=== PATIENT | female | born 1940 | race Hispanic/Latino ===

== ENCOUNTER 2019-09-22 18:14 | Observation (INO) | payer OTHER ==
[~2019-09-22] VITALS: Ht 152.4 cm; Wt 66.8 kg
[2019-09-22] MEDS ORDERED: L.E.T. GEL 4%/0.5%/0.18% 3ML 3 ML/SYR SYG TP ONE (18:56)
[2019-09-22] MEDS ORDERED: TETANUS/DIPHTHERIA TOXOID [ADULT] 0.5 ML VIAL IM ONE (19:20)
[2019-09-22 19:24] LABS: BASOPHILS % (AUTO) 0.4 % (0.0-5.0); EOSINOPHILS % (AUTO) 0.7 % (0.0-8.0); HEMATOCRIT 37.4 % (36-48); LYMPHOCYTES % (AUTO) 22.3 % (21.0-51.0); MEAN CORPUSCULAR HEMOGLOBIN 30.9 pg (27.0-33.0); MEAN CORPUSCULAR HGB CONC 33.7 g/dL (32.0-36.0); MEAN CORPUSCULAR VOLUME 91.7 fL (79-99); NEUTROPHILS % (AUTO) 69.2 % (40.0-77.0); PLATELET COUNT (AUTO) 327 K/uL (130-400); RED BLOOD CELL COUNT(AUTO) 4.08 MIL/uL (4.00-5.50); RED CELL DISTRIBUTION WIDTH 12.9 % (11.0-15.5); WHITE BLOOD COUNT (AUTO) 7.3 K/uL (4.8-10.8)
[2019-09-22] MEDS ORDERED: LIDOCAINE HCL 1% 20 ML VIAL ONE (19:38)
[2019-09-22 19:39] LABS: POTASSIUM 3.9 mmol/L (3.5-5.1)
[2019-09-22 19:43] LABS: INR 0.99 (0.85-1.15); PARTIAL THROMBOPLASTIN TIME 25.5 SEC (26.3-35.5); PROTHROMBIN TIME 10.7 SEC (9.6-11.6)
[2019-09-22 19:44] LABS: ALBUMIN 4.4 g/dL (3.5-5.0); BILIRUBIN,TOTAL 0.4 mg/dL (0.2-1.0)
[2019-09-22] MEDS: SODIUM CHLORIDE 0.9% 1000ML 1,000 ML IV SCH (19:55)
[2019-09-22] MEDS ORDERED: LACTULOSE 20 GM/30 ML UDCUP PO PRN (20:00)
[2019-09-22] MEDS: CEFAZOLIN SODIUM 1 GM VIAL IVP SCH (20:00)
[2019-09-22] MEDS ORDERED: HYDRALAZINE HCL 20 MG/ML VIAL IV PRN (20:00)
[2019-09-22] MEDS ORDERED: ACETAMINOPHEN 325 MG TAB PO PRN ×2 (20:00)
[2019-09-22] MEDS ORDERED: ONDANSETRON HCL 4 MG/2 ML VIAL IV PRN (20:00)
[2019-09-22] MEDS ORDERED: FAMOTIDINE/PF 20 MG/2 ML VIAL IV ONE (20:37)
[2019-09-22] MEDS ORDERED: CEFAZOLIN SODIUM 1 GM VIAL ONE (20:37)
[2019-09-22] MEDS ORDERED: SODIUM CHLORIDE 0.9% 1000ML 1,000 ML IV ONE (20:38)
[2019-09-22] MEDS ORDERED: SODIUM CHLORIDE 0.9% 100 ML IV ONE (20:39)
[2019-09-22 21:40] VITALS: BP 168/72
[2019-09-23] VITALS: BP 132/60
[2019-09-23 04:00] VITALS: BP 128/62
[2019-09-23 08:32] VITALS: BP 127/59
[2019-09-23] MEDS: SODIUM CHLORIDE 0.9% 1000ML 1,000 ML IV SCH ×2 (09:30→18:00)
[2019-09-23] MEDS: FAMOTIDINE/PF 20 MG/2 ML VIAL IV SCH (09:31)
[2019-09-23] MEDS: CEFAZOLIN SODIUM 1 GM VIAL IVP SCH ×2 (09:31→18:00)
[2019-09-23 11:59] VITALS: BP 142/65
--- NOTE | 2019-09-23 16:12 | NUR ---
cm note met with patient and states resides at home with daughter Irish, no provider services, no hh, pt is independent with adls/ambulation, no dme. feels safe to return back home. Addendum: 09/23/19 at 1618 by CLAIR GODWIN CM Amended: Links added.
[2019-09-23 17:51] VITALS: BP 124/61
[2019-09-23 19:00] VITALS: BP 144/57
--- NOTE | 2019-09-23 20:00 | NUR ---
ASSESS SHIFT ASSESSMENT DONE, PLEASE REFER TO CHART. INSTRUCTED TO BE NPO POST MN, VERBALIZES UNDERSTANDING. KEPT RESTED AND COMFORTABLE. CALL LIGHT WITHIN REACH. WILL MONITOR PT. Addendum: 09/23/19 at 2315 by TARYN FOLEY RN RN Amended: Links added.
--- NOTE | 2019-09-23 22:00 | NUR ---
ROUNDS PT RESTING IN BED, NO DISTRESS NOTED. NO CONCERNS VERBALIZED. ENCOURAGED TO REST AND SLEEP. WILL MONITOR PT.
[2019-09-24] VITALS (14 sets, daily range): BP systolic 118–150; BP diastolic 48–98
[2019-09-24] MEDS: CEFAZOLIN SODIUM 1 GM VIAL IVP SCH ×2 (00:04→08:00)
--- NOTE | 2019-09-24 02:00 | NUR ---
ROUNDS PT FAIRLY ASLEEP WITH RESPIRATIONS EVEN AND UNLABORED. NO DISTRESS NOTED. KEPT UNDISTURBED FOR NOW. KEPT NPO. WILL MONITOR PT.
[2019-09-24] MEDS: SODIUM CHLORIDE 0.9% 1000ML 1,000 ML IV SCH (05:50)
--- NOTE | 2019-09-24 06:53 | NUR ---
ENDORSE PT RESTING WELL. KEPT NPO FOR SX. ENDORSING TO AM SHIFT FOR MORE CARE AND MANAGEMENT.
--- NOTE | 2019-09-24 07:20 | NUR ---
OR PT TAKEN TO SX BY OR STAFF.
--- NOTE | 2019-09-24 07:25 | NUR ---
NOTE AAOX3. DENIES PAIN AT THIS TIME. NO DISTRESS OR SOB. GOT UP TO BATHROOM AND SHE IMMEDIATELY WAS TAKEN TO SURGERY. DRESSING TO HEAD D/I. NO BLEEDING NOTED. SHE SUFFERED A COMPLEX LACERATION WHEN SHE ACCIDENTALLY FELL AT HOME. DR RIOS TO DO SURGERY.
[2019-09-24] MEDS ORDERED: LACTATED RINGERS 1000ML 1,000 ML IV ONE (07:54)
[2019-09-24] MEDS ORDERED: LIDOCAINE HCL 2% 20ML ONE (08:09)
[2019-09-24] MEDS ORDERED: MIDAZOLAM HCL 1 MG/ML 2ML VIAL ONE (08:12)
[2019-09-24] MEDS ORDERED: PROPOFOL 10 MG/ML 20ML VIAL IV ONE (08:12)
[2019-09-24] MEDS ORDERED: LIDOCAINE PF 2% 5ML ABBOJECT ONE (08:12)
[2019-09-24] MEDS: FAMOTIDINE/PF 20 MG/2 ML VIAL IV SCH (09:00)
--- NOTE | 2019-09-24 09:25 | NUR ---
NOTE CAME BACK FROM SURGERY AT THIS TIME. STABLE UPON ARRIVAL. SHE DID NOT HAVE ANY PROCEDURES DONE. SHE INITIALLY CAME IN FOR LACERATION TO FOREHEAD. SHE WAS SEEN IN E.R. AND RECEIVED A FEW SUTURES BUT ONCE DR RIOS SAW THE WORK DONE IN E.R., ACCORDING TO REPORT FROM PACU NURSE, HE CLEANED THE INCISION AND APPLIED WHAT SEEMS TO BE DERMABOND. SHE WAS CLEARED FOR DISCHARGE FROM DR RIOS'S STANDPOINT. WILL NOTIFY PRIMARY TEAM IF SHE CAN BE DISCHARGED.
[2019-09-24] MEDS ORDERED: CEPH250T PO (12:42)
--- NOTE | 2019-09-24 17:30 | NUR ---
note DISCHARGE INSTRUCTIONS GIVEN AT THIS TIME. REFER TO CHART FOR DETAILS. STABLE UPON LEAVING.
== END 2019-09-24 18:05 | disposition home or self-care (01) ==
LOC: EDH 18:14 → EDBD 18:14 → EDHIP 19:20 → 3BH 21:40
PROVIDERS: ADMIT Surgery Plastic and Reconstructive Surgery; ATTEND Surgery Plastic and Reconstructive Surgery
DX: S01.81XA Laceration without foreign body of other part of head, initial encounter (principal); F17.210 Nicotine dependence, cigarettes, uncomplicated; Z90.49 Acquired absence of other specified parts of digestive tract; W01.0XXA Fall on same level from slipping, tripping and stumbling without subsequent striking against object, initial encounter; Y93.89 Activity, other specified; Y92.89 Other specified places as the place of occurrence of the external cause
CPT/HCPCS: 12015; 36415 ×2; 70450; 70486; 72125; 80053; 83880; 84484; 85025; 85610; 85730; 87040 ×2; 90714; 93005; 96374; 96375; 96376 ×2; 99285; A4215; A4221; A4222; A4223; A4663; A4930; G0168; G0378 ×46; J0690 ×5; J2001; J2250; J2704; J3490 ×4; J7030 ×3; J7120

== ENCOUNTER 2021-11-12 14:45 | Observation (INO) | payer OTHER ==
[~2021-11-12] VITALS: Ht 152.4 cm; Wt 70.5 kg
[~2021-11-12 14:45] MED LIST: CEPH250T PO
[2021-11-12] MEDS ORDERED: 0.9%NACL 1000ML 1,000 ML IV ONE (15:00)
[2021-11-12 15:05] LABS: BASOPHILS % (AUTO) 0.3 % (0.0-5.0); EOSINOPHILS % (AUTO) 0.2 % (0.0-8.0); HEMATOCRIT 39.1 % (36-48); LYMPHOCYTES % (AUTO) 8.3 % (21.0-51.0); MEAN CORPUSCULAR HEMOGLOBIN 28.6 pg (27.0-33.0); MEAN CORPUSCULAR HGB CONC 31.2 g/dL (32.0-36.0); MEAN CORPUSCULAR VOLUME 91.8 fL (79-99); NEUTROPHILS % (AUTO) 85.9 % (40.0-77.0); PLATELET COUNT (AUTO) 312 K/uL (130-400); RED BLOOD CELL COUNT(AUTO) 4.26 MIL/uL (4.00-5.50); RED CELL DISTRIBUTION WIDTH 14.2 % (11.0-15.5); WHITE BLOOD COUNT (AUTO) 9.6 K/uL (4.8-10.8)
[2021-11-12 15:18] LABS: CREATININE 1.5 mg/dL (0.5-1.5); INR 0.96 (0.85-1.15); POTASSIUM 3.1 mmol/L (3.5-5.1); PROTHROMBIN TIME 10.5 SEC (9.6-11.6)
[2021-11-12 15:20] LABS: PARTIAL THROMBOPLASTIN TIME 23.7 SEC (26.3-35.5)
[2021-11-12 15:22] LABS: MAGNESIUM 2.1 mg/dL (1.80-2.40)
[2021-11-12 15:25] LABS: ALBUMIN 4.3 g/dL (3.5-5.0); BILIRUBIN,TOTAL 0.5 mg/dL (0.2-1.0); TOTAL PROTEIN, SERUM 7.9 g/dL (6.0-8.3)
[2021-11-12] MEDS ORDERED: KCL 20 MEQ ERTAB PO ONE (15:30)
[2021-11-12 16:07] LABS: APPEARANCE,URINE CLOUDY (CLEAR); BILIRUBIN,URINE SMALL (NEGATIVE); COLOR,URINE YELLOW (YELLOW); GLUCOSE, URINE (UA) NEGATIVE (NEGATIVE); KETONES,URINE NEGATIVE (NEGATIVE); LEUKOCYTE ESTERASE ,URINE MODERATE (NEGATIVE); NITRATE,URINE NEGATIVE (NEGATIVE); OCCULT BLOOD,URINE SMALL (NEGATIVE); PH,URINE 5.5 (5.0-8.0); PROTEIN,URINE 30 mg/dL (NEGATIVE)
[2021-11-12 16:22] LABS: BACTERIA,URINE Moderate /HPF (None Seen)
[2021-11-12 16:23] LABS: MUCUS,URINE Few LPF (None Seen); SQUAMOUS EPITHELIAL CELL,UR Few /HPF (0-2)
[2021-11-12] MEDS ORDERED: CEFTRIAXONE 1G VIAL IVP ONE (16:30)
[2021-11-12] MEDS ORDERED: CEPH500B PO (17:10)
[2021-11-12] MEDS ORDERED: ASPIRIN 81MG CHEW TAB PO ONE (17:30)
[2021-11-12] MEDS ORDERED: ONDANSETRON 4MG INJ IV PRN (19:00)
[2021-11-12] MEDS ORDERED: CEFTRIAXONE 1G VIAL IV SCH (19:00)
[2021-11-12] MEDS: 0.9%NACL 1000ML 1,000 ML IV SCH (19:00)
[2021-11-12 19:18] LABS: PROTEIN,URINE RANDOM 67.3 mg/dL (0-11.9)
[2021-11-12] MEDS ORDERED: POTASSIUM CHLORIDE 10% ELIXIR 20 MEQ/15 ML UDCUP PO PRN (21:00)
[2021-11-12] MEDS ORDERED: POTASSIUM CHLORIDE 20MEQ/100ML 100 ML IV PRN (21:00)
[2021-11-12] MEDS ORDERED: LIDOCAINE HCL-MPF 1% 2ML VIAL IV PRN (21:00)
[2021-11-12] MEDS: KCL 20 MEQ ERTAB PO PRN (21:13)
[2021-11-12] MEDS: ATORVASTATIN 40 MG TABLET PO SCH (21:13)
[2021-11-13 00:42] VITALS: BP 156/76
[2021-11-13] MEDS: KCL 20 MEQ ERTAB PO PRN (01:31)
[2021-11-13 04:17] VITALS: BP 145/73
[2021-11-13 05:18] LABS: BASOPHILS % (AUTO) 0.3 % (0.0-5.0); EOSINOPHILS % (AUTO) 1.4 % (0.0-8.0); HEMATOCRIT 35.1 % (36-48); LYMPHOCYTES % (AUTO) 30.1 % (21.0-51.0); MEAN CORPUSCULAR HEMOGLOBIN 29.1 pg (27.0-33.0); MEAN CORPUSCULAR HGB CONC 31.6 g/dL (32.0-36.0); MEAN CORPUSCULAR VOLUME 92.1 fL (79-99); MONOCYTES % (AUTO) 8.3 % (3.0-13.0); NEUTROPHILS % (AUTO) 59.6 % (40.0-77.0); PLATELET COUNT (AUTO) 283 K/uL (130-400); RED BLOOD CELL COUNT(AUTO) 3.81 MIL/uL (4.00-5.50); RED CELL DISTRIBUTION WIDTH 14.2 % (11.0-15.5)
[2021-11-13 05:34] LABS: CREATININE 0.8 mg/dL (0.5-1.5); MAGNESIUM 1.9 mg/dL (1.80-2.40); PHOSPHORUS 2.8 mg/dL (2.5-4.9); POTASSIUM 4.9 mmol/L (3.5-5.1)
[2021-11-13 05:40] LABS: HEMOGLOBIN A1C 5.4 % (4.0-6.0)
[2021-11-13] MEDS ORDERED: ATOR40TA69 PO (07:17)
[2021-11-13] MEDS ORDERED: ASPI-1005 PO (07:17)
[2021-11-13] MEDS ORDERED: CEFD300C3 PO (07:18)
[2021-11-13 08:00] VITALS: BP 160/67
[2021-11-13] MEDS: FAMOTIDINE 20MG VIAL IV SCH (09:27)
[2021-11-13] MEDS: ASPIRIN 81MG CHEW TAB PO SCH (09:27)
[2021-11-13] MEDS: 0.9%NACL 1000ML 1,000 ML IV SCH (09:30)
[2021-11-13 12:00] VITALS: BP 145/64
[2021-11-13 16:00] VITALS: BP 127/62
[2021-11-13] MEDS ORDERED: CEFTRIAXONE 1G VIAL IV SCH (16:30)
[2021-11-13] MEDS ORDERED: CLOP75TA14 PO (19:14)
[2021-11-13 20:02] VITALS: BP 152/60
[2021-11-13] MEDS ORDERED: APIXABAN 2.5 MG TABLET PO SCH (21:00)
[2021-11-13] MEDS: ATORVASTATIN 40 MG TABLET PO SCH (21:16)
[2021-11-14 00:18] VITALS: BP 149/59
[2021-11-14 04:15] VITALS: BP 172/78
[2021-11-14 07:40] VITALS: BP 124/53
[2021-11-14] MEDS: FAMOTIDINE 20MG VIAL IV SCH (08:07)
[2021-11-14] MEDS: ASPIRIN 81MG CHEW TAB PO SCH (08:08)
== END 2021-11-14 09:20 | disposition home or self-care (01) ==
LOC: EDH 14:45 → INTOOBSV 18:43 → EDHIP 18:43 → 2DH 11-13 00:24
PROVIDERS: ADMIT Internal Medicine; ATTEND Internal Medicine
DX: F07.81 Postconcussional syndrome (principal); S01.21XA Laceration without foreign body of nose, initial encounter; S01.81XA Laceration without foreign body of other part of head, initial encounter; S05.31XA Ocular laceration without prolapse or loss of intraocular tissue, right eye, initial encounter; N39.0 Urinary tract infection, site not specified; E87.6 Hypokalemia; E11.65 Type 2 diabetes mellitus with hyperglycemia; R80.9 Proteinuria, unspecified; R27.0 Ataxia, unspecified; I10 Essential (primary) hypertension; E78.5 Hyperlipidemia, unspecified; N17.9 Acute kidney failure, unspecified; W18.30XA Fall on same level, unspecified, initial encounter; Y93.89 Activity, other specified; Y92.89 Other specified places as the place of occurrence of the external cause; Z79.899 Other long term (current) drug therapy
CPT/HCPCS: 12013; 36415 ×2; 70450; 70544; 70547; 70551; 71045; 72125; 72170; 80048; 80053; 81001; 82550; 82948 ×5; 83036; 83735 ×2; 83935; 84100; 84156; 84300; 84484; 85025 ×2; 85610; 85730; 87088; 92522; 92610; 93005; 93306; 93356; 96361 ×2; 96374; 96375; 96376 ×2; 97039 ×2; 97161; 99285; G0378 ×23; J0696 ×2; J3490 ×2; J7030

== ENCOUNTER 2022-02-18 03:47 | Emergency (ER) | payer OTHER ==
[~2022-02-18] VITALS: Ht 152.4 cm; Wt 68.0 kg
[~2022-02-18 03:47] MED LIST changes: +ASPI-1005 PO; +ATOR40TA69 PO; +CEFD300C3 PO; -CEPH250T PO; +CLOP75TA14 PO
[2022-02-18 04:59] VITALS: BP 162/74
[2022-02-18] MEDS ORDERED: TETANUS/DIPHTHERIA TOXOID [ADULT] 0.5 ML VIAL IM ONE ×2 (05:00→05:03)
== END 2022-02-18 05:14 | disposition home or self-care (01) ==
LOC: EDH 03:47
DX: S01.01XA Laceration without foreign body of scalp, initial encounter (principal); Z79.82 Long term (current) use of aspirin; X58.XXXA Exposure to other specified factors, initial encounter; Y93.89 Activity, other specified; Y92.89 Other specified places as the place of occurrence of the external cause; Y99.8 Other external cause status
CPT/HCPCS: 12001; 90471; 90714

== ENCOUNTER 2022-02-23 18:05 | Emergency (ER) | payer OTHER ==
[~2022-02-23] VITALS: Ht 152.4 cm; Wt 68.0 kg
[2022-02-23] MEDS ORDERED: ACETAMINOPHEN 500 MG TABLET PO ONE (19:00)
[2022-02-23] MEDS ORDERED: 0.9%NACL 1000ML 1,000 ML IV SCH (19:00)
[2022-02-23 20:00] LABS: BASOPHILS % (AUTO) 0.4 % (0.0-5.0); EOSINOPHILS % (AUTO) 0.5 % (0.0-8.0); HEMATOCRIT 36.9 % (36-48); LYMPHOCYTES % (AUTO) 16.9 % (21.0-51.0); MEAN CORPUSCULAR HEMOGLOBIN 29.3 pg (27.0-33.0); MEAN CORPUSCULAR HGB CONC 32.8 g/dL (32.0-36.0); MEAN CORPUSCULAR VOLUME 89.3 fL (79-99); MONOCYTES % (AUTO) 10.8 % (3.0-13.0); NEUTROPHILS % (AUTO) 70.7 % (40.0-77.0); PLATELET COUNT (AUTO) 422 K/uL (130-400); RED BLOOD CELL COUNT(AUTO) 4.13 MIL/uL (4.00-5.50); RED CELL DISTRIBUTION WIDTH 14.4 % (11.0-15.5); WHITE BLOOD COUNT (AUTO) 12.2 K/uL (4.8-10.8)
[2022-02-23 20:07] LABS: APPEARANCE,URINE CLEAR (CLEAR); BILIRUBIN,URINE MODERATE (NEGATIVE); COLOR,URINE YELLOW (YELLOW); GLUCOSE, URINE (UA) NEGATIVE (NEGATIVE); KETONES,URINE 15 mg/dL (NEGATIVE); LEUKOCYTE ESTERASE ,URINE SMALL (NEGATIVE); NITRATE,URINE NEGATIVE (NEGATIVE); OCCULT BLOOD,URINE SMALL (NEGATIVE); PROTEIN,URINE 100 mg/dL (NEGATIVE); UROBILINOGEN,URINE >=8.0 mg/dL (0.2-1.0)
[2022-02-23 20:15] VITALS: BP 142/76
[2022-02-23 20:18] LABS: BACTERIA,URINE Few /HPF (None Seen); MUCUS,URINE Moderate LPF (None Seen); SQUAMOUS EPITHELIAL CELL,UR Many /HPF (0-2)
[2022-02-23 20:25] LABS: CREATININE 0.9 mg/dL (0.5-1.5); POTASSIUM 4.3 mmol/L (3.5-5.1)
[2022-02-23 20:29] LABS: ALBUMIN 3.7 g/dL (3.5-5.0); TOTAL PROTEIN, SERUM 8.4 g/dL (6.0-8.3)
[2022-02-23 20:36] LABS: CRP QUANTITATIVE 234.8 mg/L (0.00-9.0)
[2022-02-23] MEDS ORDERED: CEFTRIAXONE 1G VIAL IVP ONE (21:30)
[2022-02-23] MEDS ORDERED: FLUC150T PO (21:30)
[2022-02-23] MEDS ORDERED: FLUCONAZOLE 100 MG TAB PO ONE (21:30)
[2022-02-23] MEDS ORDERED: CEPH500B PO (21:30)
== END 2022-02-23 21:53 | disposition home or self-care (01) ==
LOC: EDH 18:05
DX: S01.01XD Laceration without foreign body of scalp, subsequent encounter (principal); N39.0 Urinary tract infection, site not specified; Z20.822 Contact with and (suspected) exposure to COVID-19; Z79.82 Long term (current) use of aspirin; E86.1 Hypovolemia; X58.XXXD Exposure to other specified factors, subsequent encounter
CPT/HCPCS: 99284; 84484; 80053; 82140; 85025; 87040 ×2; 87088; 87804 ×2; 83605; 86140; 81001; 36415; 87635; 71045; 70450; 96374; 96361; C9803; J7030; J0696

== ENCOUNTER 2022-03-01 17:26 | Emergency (ER) | payer OTHER ==
[~2022-03-01] VITALS: Ht 157.5 cm; Wt 68.0 kg
[~2022-03-01 17:26] MED LIST changes: +CEPH500B PO; +FLUC150T PO
[2022-03-01] MEDS ORDERED: OXYMETAZOLINE HCL SPRAY 15 ML BOTTLE EN STA (18:22)
[2022-03-01] MEDS ORDERED: OXYMETAZOLINE HCL SPRAY 15 ML BOTTLE ONE (18:25)
[2022-03-01] MEDS ORDERED: OCTYL 2-CYANOACRYLATE 1 EACH TP ONE (18:31)
[2022-03-01 18:32] VITALS: BP 186/66
[2022-03-01] MEDS ORDERED: OCTYL 2-CYANOACRYLATE 1 EACH TP SCH (19:00)
== END 2022-03-01 18:51 | disposition home or self-care (01) ==
LOC: EDH 17:26
DX: S02.2XXA Fracture of nasal bones, initial encounter for closed fracture (principal); Z79.82 Long term (current) use of aspirin; Z79.899 Other long term (current) drug therapy; W18.09XA Striking against other object with subsequent fall, initial encounter; Y93.01 Activity, walking, marching and hiking; Y92.89 Other specified places as the place of occurrence of the external cause; Y99.8 Other external cause status
CPT/HCPCS: 70450; 70486; 72125

== ENCOUNTER 2022-05-18 20:29 | Emergency (ER) | payer OTHER ==
[~2022-05-18] VITALS: Ht 152.4 cm; Wt 70.8 kg
[~2022-05-18 20:29] MED LIST changes: +CLOP-31 PO; -CLOP75TA14 PO
[2022-05-18 21:55] LABS: INR 0.99 (0.85-1.15); PROTHROMBIN TIME 10.8 SEC (9.6-11.6)
[2022-05-18 21:56] LABS: PARTIAL THROMBOPLASTIN TIME 26.6 SEC (26.3-35.5)
[2022-05-18 21:57] LABS: CREATININE 0.7 mg/dL (0.5-1.5); POTASSIUM 3.9 mmol/L (3.5-5.1)
[2022-05-18 22:02] LABS: ALBUMIN 4.1 g/dL (3.5-5.0); TOTAL PROTEIN, SERUM 7.5 g/dL (6.0-8.3)
[2022-05-18 22:31] LABS: BASOPHILS % (AUTO) 0.5 % (0.0-5.0); EOSINOPHILS % (AUTO) 0.9 % (0.0-8.0); HEMATOCRIT 38.7 % (36-48); LYMPHOCYTES % (AUTO) 28.2 % (21.0-51.0); MEAN CORPUSCULAR HEMOGLOBIN 29.6 pg (27.0-33.0); MEAN CORPUSCULAR HGB CONC 32.8 g/dL (32.0-36.0); MEAN CORPUSCULAR VOLUME 90.2 fL (79-99); MONOCYTES % (AUTO) 7.8 % (3.0-13.0); NEUTROPHILS % (AUTO) 62.3 % (40.0-77.0); PLATELET COUNT (AUTO) 311 K/uL (130-400); RED BLOOD CELL COUNT(AUTO) 4.29 MIL/uL (4.00-5.50); RED CELL DISTRIBUTION WIDTH 14.6 % (11.0-15.5); WHITE BLOOD COUNT (AUTO) 7.7 K/uL (4.8-10.8)
[2022-05-18] MEDS ORDERED: IBUP-1493 PO (22:57)
[2022-05-18] MEDS ORDERED: OXYCODONE HCL 5 MG TAB PO ONE (23:00)
[2022-05-18 23:30] VITALS: BP 187/77
[2022-05-18] MEDS ORDERED: LIDOCAINE HCL 1% 20 ML VIAL INJ SCH (23:30)
== END 2022-05-18 23:52 | disposition home or self-care (01) ==
LOC: EDH 20:29
DX: S62.614A Displaced fracture of proximal phalanx of right ring finger, initial encounter for closed fracture (principal); S62.612A Displaced fracture of proximal phalanx of right middle finger, initial encounter for closed fracture; W19.XXXA Unspecified fall, initial encounter; Y93.89 Activity, other specified; Y92.008 Other place in unspecified non-institutional (private) residence as the place of occurrence of the external cause; Y99.8 Other external cause status
CPT/HCPCS: 12001; 29125; 36415; 70450; 72125; 73090; 73130; 80053; 84484; 85025; 85610; 85730

== ENCOUNTER 2022-10-11 10:48 | Emergency (ER) | payer OTHER ==
[~2022-10-11] VITALS: Ht 144.8 cm; Wt 70.3 kg
[~2022-10-11 10:48] MED LIST changes: +IBUP-1493 PO
[2022-10-11 14:16] LABS: BASOPHILS % (AUTO) 0.3 % (0.0-5.0); EOSINOPHILS % (AUTO) 0.8 % (0.0-8.0); HEMATOCRIT 38.8 % (36-48); LYMPHOCYTES % (AUTO) 17.3 % (21.0-51.0); MEAN CORPUSCULAR HEMOGLOBIN 29.3 pg (27.0-33.0); MEAN CORPUSCULAR HGB CONC 32.2 g/dL (32.0-36.0); MEAN CORPUSCULAR VOLUME 91.1 fL (79-99); MONOCYTES % (AUTO) 6.5 % (3.0-13.0); NEUTROPHILS % (AUTO) 74.8 % (40.0-77.0); PLATELET COUNT (AUTO) 358 K/uL (130-400); RED BLOOD CELL COUNT(AUTO) 4.26 MIL/uL (4.00-5.50); RED CELL DISTRIBUTION WIDTH 13.6 % (11.0-15.5); WHITE BLOOD COUNT (AUTO) 9.1 K/uL (4.8-10.8)
[2022-10-11 14:31] VITALS: BP 165/81
[2022-10-11 14:54] LABS: CREATININE 0.9 mg/dL (0.5-1.5); POTASSIUM 3.7 mmol/L (3.5-5.1)
[2022-10-11] MEDS ORDERED: BACI30OI6 TP (15:33)
== END 2022-10-11 15:56 | disposition home or self-care (01) ==
LOC: EDH 10:48
DX: S05.32XA Ocular laceration without prolapse or loss of intraocular tissue, left eye, initial encounter (principal); H11.32 Conjunctival hemorrhage, left eye; I10 Essential (primary) hypertension; E11.9 Type 2 diabetes mellitus without complications; E78.00 Pure hypercholesterolemia, unspecified; Z88.6 Allergy status to analgesic agent; Z79.82 Long term (current) use of aspirin; Z79.899 Other long term (current) drug therapy; Z90.49 Acquired absence of other specified parts of digestive tract; Z98.890 Other specified postprocedural states; W18.39XA Other fall on same level, initial encounter; Y93.89 Activity, other specified; Y92.89 Other specified places as the place of occurrence of the external cause; Y99.8 Other external cause status
CPT/HCPCS: 36415; 70450; 70486; 72125; 80053; 85025

== ENCOUNTER 2023-01-08 14:37 | Emergency (ER) | payer OTHER ==
[~2023-01-08] VITALS: Ht 154.9 cm; Wt 65.8 kg
[~2023-01-08 14:37] MED LIST changes: +BACI30OI6 TP
[2023-01-08 15:50] VITALS: BP 131/62
[2023-01-08] MEDS ORDERED: BACITRACIN 1 EACH PACKET TP ONE (16:19)
== END 2023-01-08 16:43 | disposition home or self-care (01) ==
LOC: EDH 14:37
DX: S01.01XD Laceration without foreign body of scalp, subsequent encounter (principal); I10 Essential (primary) hypertension; Z79.02 Long term (current) use of antithrombotics/antiplatelets; Z79.1 Long term (current) use of non-steroidal anti-inflammatories (NSAID); Z79.82 Long term (current) use of aspirin; Z88.6 Allergy status to analgesic agent; Z90.49 Acquired absence of other specified parts of digestive tract; X58.XXXD Exposure to other specified factors, subsequent encounter
CPT/HCPCS: 99281

== ENCOUNTER 2023-10-20 17:06 | Emergency (ER) | payer OTHER ==
[~2023-10-20] VITALS: Ht 154.9 cm; Wt 68.0 kg
[2023-10-20 17:27] VITALS: BP 174/80; PULSE 92; RESP 18
[2023-10-20] MEDS: ACETAMINOPHEN 500 MG TABLET PO ONE (18:06)
[2023-10-20] MEDS: OCTYL 2-CYANOACRYLATE 1 EACH TP SCH (18:06)
[2023-10-20] MEDS: TETANUS/DIPHTHERIA TOXOID [ADULT] 0.5 ML VIAL IM ONE (18:09)
[2023-10-20] MEDS ORDERED: CEPH500B PO (19:04)
[2023-10-20] MEDS: ACETAMINOPHEN WITH CODEINE 1 TAB TAB PO ONE (19:11)
== END 2023-10-20 19:19 | disposition home or self-care (01) ==
LOC: EDH 17:06
DX: S61.511A Laceration without foreign body of right wrist, initial encounter (principal); I10 Essential (primary) hypertension; Z90.49 Acquired absence of other specified parts of digestive tract; Z79.899 Other long term (current) drug therapy; W18.30XA Fall on same level, unspecified, initial encounter; Y93.89 Activity, other specified; Y92.89 Other specified places as the place of occurrence of the external cause; Y99.8 Other external cause status
CPT/HCPCS: 12002; 73100; 90471; 90714

== ENCOUNTER → 2024-04-18 | Outpatient (CLI) | payer OTHER ==
[~2024-04-18] MED LIST changes: +GADOTERATE MEGLUMINE 5 MMOL/10 ML VIAL IV ONE
== END | disposition home or self-care (01) ==
LOC: RAH 08:35
PROVIDERS: ATTEND Family Medicine
DX: G20.B1 Parkinson's disease with dyskinesia, without mention of fluctuations (principal); H74.8X3 Other specified disorders of middle ear and mastoid, bilateral
CPT/HCPCS: 70553; A9575